=== PATIENT | male | born 1995 | race American Indian/Alaskan Native ===

== ENCOUNTER 2019-08-13 16:00 | Emergency (ER) | payer OTHER ==
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
[2019-08-13 16:15] VITALS: BP 116/80
--- NOTE | 2019-08-13 16:50 | XRay Report ---
LUMBAR SPINE 3 VIEWS INDICATION / CLINICAL INFORMATION: lower back pain. COMPARISON: None available. FINDINGS: VERTEBRAE: No acute fracture. No significant malalignment. DISC SPACES / FACET JOINTS:No significant abnormality. PARASPINAL SOFT TISSUES:No significant abnormality. ADDITIONAL FINDINGS: None. Signer Name: Marilee Regalado MD Signed: 08/13/2019 4:46 PM Workstation Name: [id number]
[2019-08-13] MEDS ORDERED: IBUPROFEN 600 MG TAB PO ONE (19:43)
[2019-08-13] MEDS ORDERED: oxyCODONE /ACETAMINOPHEN 5-325MG TAB PO ONE (19:43)
[2019-08-13] MEDS ORDERED: ONDANSETRON 4 MG ODT TAB PO ONE (19:44)
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
== END 2019-08-13 21:10 | disposition home or self-care (01) ==
LOC: ED 16:00
DX: M54.5 Low back pain (principal); M62.830 Muscle spasm of back
CPT/HCPCS: 72100; Q0162